=== PATIENT | male | born 1970 | race Caucasian/White ===

== ENCOUNTER 2021-06-19 21:56 | Emergency (ER) | payer OTHER ==
[~2021-06-19] VITALS: Ht 172.7 cm; Wt 58.0 kg
--- NOTE | 2021-06-19 22:05 | NUR ---
BIB [facility]. PT C/O RIGHT FLANK AND TESTICULAR PAIN X10 DAYS. +ETOH AND MARIJUANA COLOR STRIPPER [facility]: ZOFRAN 4MG ODT. PT CONNECTED TO MONITORING. CALL LIGHT IN REACH. AWAITING ORDERS.
[2021-06-19] MEDS ORDERED: KETOROLAC 30 MG/1 ML ONE (22:11)
--- NOTE | 2021-06-19 22:14 | NUR ---
PT AT CT
[2021-06-19] MEDS ORDERED: KETOROLAC 30 MG/1 ML IM ONE (22:30)
--- NOTE | 2021-06-19 22:56 | NUR ---
PT PROVIDED URINE SAMPLE. UA COLLECTED AND SENT TO LAB.
[2021-06-19 23:08] LABS: BASOPHILS % (AUTO) 1 % (0-1); EOSINOPHILS % (AUTO) 2 % (1-7); LYMPHOCYTES % (AUTO) 15 % (22-44); MEAN CORPUSCULAR HEMOGLOBIN 35.1 pg (27.5-34.5); MEAN CORPUSCULAR HGB CONC 34.9 g/dL (33.2-36.2); MONOCYTES % (AUTO) 10 % (2-9); NEUTROPHILS % (AUTO) 72 % (42-75); PLATELET COUNT 302 x10^3/uL (130-400); RED BLOOD COUNT 4.41 x10^6/uL (4.38-5.82); RED CELL DISTRIBUTION WIDTH 14.9 % (9.4-14.8)
[2021-06-19 23:09] VITALS: BP 150/89
[2021-06-19 23:17] LABS: ALANINE AMINOTRANSFERASE 80 U/L (12-78); ALBUMIN 3.8 g/dL (3.4-5.0); ANION GAP 15 mmol/L (5-15); CALCIUM 8.7 mg/dL (8.5-10.1); CHLORIDE 102 mmol/L (98-107); CREATININE 0.85 mg/dL (0.7-1.3)
[2021-06-19 23:21] LABS: MICROSCOPIC INDICATED
[2021-06-19 23:25] LABS: ALKALINE PHOSPHATASE 70 U/L (45-117); BILIRUBIN,TOTAL 0.6 mg/dL (0.2-1.0); TOTAL PROTEIN 7.5 g/dL (6.4-8.2)
--- NOTE | 2021-06-19 23:30 | NUR ---
PT HAS NOT VOMITTED SINCE ARRIVAL.
--- NOTE | 2021-06-19 23:36 | NUR ---
ALL RESULTS ARE BACK AT THIS TIME. CHART UP FOR RECHECK.
== END 2021-06-20 00:07 | disposition home or self-care (01) ==
LOC: ED 22:30
DX: R10.9 Unspecified abdominal pain (principal); R31.9 Hematuria, unspecified; R94.31 Abnormal electrocardiogram [ECG] [EKG]
CPT/HCPCS: 36415; 74176; 80053; 81001; 83690; 85025; 93005; 96372; 99285; J1885; 99284

== ENCOUNTER 2021-06-20 19:14 | Emergency (ER) | payer MEDICAID, OTHER ==
[~2021-06-20] VITALS: Ht 172.7 cm; Wt 62.7 kg
--- NOTE | 2021-06-20 19:28 | NUR ---
BIB EMS FROM HOME FOR N/V X 8 DAYS AND R SIDE ABD PAIN X 8 MONTHS RADIATING TO R TESTICLE. PT ALSO C/O BLOODY EJACULATE ONCE 3 WEEKS AGO. PT ALSO DRANK 1/2 PINT VODKA. WAS SEEN HERE YESTERDAY FOR SAME AND WAS DISCHARGED HOME. GIVEN 750 ML NS FOR TACHYCARDIA NOTED TO BE 101, BS 160 , SBP 140. PT RESTING ON GURNEY. NADN. MONITORS APPLIED. VSS. WARM BLANKET PROVIDED. CALL LIGHT IN REACH. ERP DR. HENRY AT BEDSIDE FOR EVAL.
[2021-06-20] MEDS ORDERED: THIAMINE 200 MG in SODIUM CHLORIDE 0.9% 50 ML IV ONE (19:30)
[2021-06-20] MEDS ORDERED: MORPHINE SULFATE 4 MG/ML, 1ML IVPush PRN (19:30)
[2021-06-20] MEDS ORDERED: METOCLOPRAMIDE 5 MG/ML, 2ML IVPush ONE (19:30)
[2021-06-20] MEDS ORDERED: SODIUM CHLORIDE FLUSH 10ML SYR IVF ONE (19:30)
[2021-06-20] MEDS ORDERED: SODIUM CHLORIDE 0.9% 1,000ML IVBOLUS ONE (19:30)
[2021-06-20] MEDS ORDERED: FAMOTIDINE 20 MG/2 ML IVPush ONE (19:30)
[2021-06-20] MEDS ORDERED: FAMOTIDINE 20 MG/2 ML ONE (19:48)
[2021-06-20] MEDS ORDERED: METOCLOPRAMIDE 5 MG/ML, 2ML ONE (19:48)
[2021-06-20] MEDS ORDERED: MORPHINE SULFATE 4 MG/ML, 1ML ONE (19:48)
--- NOTE | 2021-06-20 19:55 | NUR ---
YELLOW SLIP SENT TO PHARMACY FOR MED PER DEC.
[2021-06-20 20:01] LABS: MEAN CORPUSCULAR HEMOGLOBIN 34.6 pg (27.5-34.5); MEAN CORPUSCULAR HGB CONC 34.5 g/dL (33.2-36.2); MEAN PLATELET VOLUME 6.6 fL (7.4-10.4); PLATELET COUNT 255 x10^3/uL (130-400); RED BLOOD COUNT 4.07 x10^6/uL (4.38-5.82); RED CELL DISTRIBUTION WIDTH 14.8 % (9.4-14.8)
--- NOTE | 2021-06-20 20:10 | NUR ---
PT RESTING ON GURNEY. NADN. LOVETT.
[2021-06-20 20:14] LABS: ALBUMIN 3.3 g/dL (3.4-5.0); ANION GAP 8 mmol/L (5-15); CALCIUM 8.7 mg/dL (8.5-10.1); CHLORIDE 98 mmol/L (98-107)
[2021-06-20 20:20] LABS: ALANINE AMINOTRANSFERASE 65 U/L (12-78); ALKALINE PHOSPHATASE 65 U/L (45-117); CREATININE 0.81 mg/dL (0.7-1.3); TOTAL PROTEIN 6.9 g/dL (6.4-8.2); TROPONIN I < 0.015 ng/mL (0.000-0.045)
[2021-06-20 20:25] LABS: <PLATELET ESTIMATE> ADEQUATE; <PLT MORPHOLOGY> NORMAL PLT MORPH; LYMPH#(MANUAL) 0.83 x10^3/uL (1-3.4); LYMPHS% (MANUAL) 8 % (22-44); MONOS#(MANUAL) 0.52 x10^3/uL (0.3-2.7); MONOS% (MANUAL) 5 % (2-9); SEG#(MANUAL) 9.05 x10^3/uL (1.8-6.8); SEGS% (MANUAL) 87 % (42-75)
[2021-06-20 20:26] LABS: ANISOCYTOSIS 1+; STOMATOCYTES 1+
[2021-06-20] MEDS ORDERED: POTASSIUM CHLORIDE 20 MEQ TAB.ER.PRT PO ONE (20:30)
[2021-06-20] MEDS ORDERED: MAALOX/HYOSCYAMINE/LIDOCAINE 45 ML BTL PO ONE (20:30)
[2021-06-20] MEDS ORDERED: POTASSIUM CHLORIDE 20 MEQ TAB.ER.PRT ONE (20:40)
[2021-06-20] MEDS ORDERED: MAALOX/HYOSCYAMINE/LIDOCAINE 45 ML BTL ONE (20:40)
[2021-06-20] MEDS ORDERED: LORazepam 2 MG/ML, 1ML ONE (20:45)
[2021-06-20] MEDS ORDERED: LORazepam 2 MG/ML, 1ML IVPush ONE (21:00)
[2021-06-20] MEDS ORDERED: ASPIRIN 300 MG SUPP PR ONE (21:00)
--- NOTE | 2021-06-20 21:16 | NUR ---
REPORT GIVEN TO IDRIS LLAMAS RN.
[2021-06-20 21:21] LABS: PROTHROMBIN TIME 10.7 Seconds (9.6-11.5)
[2021-06-20 21:26] VITALS: BP 127/67
--- NOTE | 2021-06-20 22:06 | NUR ---
[facility] MED COMPLETE, AND PT TO BE DISCHARGED.
--- NOTE | 2021-06-20 22:58 | NUR ---
F/U AND D/C INSTRUCTIONS GIVEN TO PT AND HE V/U. PT AMBULATED TO THE DISCHARGE DESK.
== END 2021-06-20 23:00 | disposition home or self-care (01) ==
LOC: ED 22:00
DX: K29.20 Alcoholic gastritis without bleeding (principal); F10.10 Alcohol abuse, uncomplicated; Y90.9 Presence of alcohol in blood, level not specified
CPT/HCPCS: 36415; 80053; 80320; 83690; 84484; 85025; 85610; 85730; 93005; 96361; 96365; 96375; 99284; J2060; J2270; J2765; J3411; J7030; G0480